=== PATIENT | female | born 1945 | race Caucasian/White ===

== ENCOUNTER 2017-03-05 11:58 | Day surgery (SDC) | payer MEDICARE, OTHER ==
--- NOTE | ~2017-03-05 | EGD ---
EGD REPORT [facility] [address] [id number] NAME: ADONIS AGUIRRE : [birth year] STATUS : [place] [facility] [place] PAT#: [id number] AGE: 71 ADM/REG DATE : 03/05/17 MR#: [id number] REPORT SERV DATE: 03/05/17 DICTATED BY: AKIKO THOMAS DATE: 03/05/17 REPORT STATUS : Draft [facility] DATE: 03/05/17 Endoscopy Center Patient Name: Adonis Aguirre Date of : 1945 Attending MD: AKIKO THOMAS MD Procedure Date No Time: 03/05/2017 Procedure: Upper GI endoscopy Indications: Epigastric abdominal pain, Anorexia, Nausea, Weight loss Referring MD: Mercy TEAGUE Medicines: See the Anesthesia note for documentation of the administered medications Complications: No immediate complications. Procedure: Pre-Anesthesia Assessment: - ASA Grade Assessment: II - A patient with mild systemic disease. After obtaining informed consent, the endoscope was passed under direct vision. Throughout the procedure, the patient's blood pressure, pulse, and oxygen saturations were monitored continuously. The [facility] [id number] was introduced through the mouth, and advanced to the second part of duodenum. The upper GI endoscopy was accomplished without difficulty. The patient tolerated the procedure well. Findings: The 2nd part of the duodenum was normal. Biopsies were taken with a cold forceps for histology. The gastric antrum was normal. Biopsies were taken with a cold forceps for histology. The cardia and gastric fundus were normal on retroflexion. The examined esophagus was normal. Impression: - Normal 2nd part of the duodenum. Biopsied. - Normal antrum. Biopsied. - Normal esophagus. Recommendation: - Patient has a contact number available for emergencies. The signs and symptoms of potential delayed complications were discussed with the patient. Return to normal activities tomorrow. Written discharge instructions were provided to the patient. - Regular diet. - Continue present medications. - FOR YOUR BIOPSY RESULTS: Please go to [email or web address] and register to receive your EGD REPORT [address] [address] NAME: ADONIS AGUIRRE : [birth year] STATUS : [place] [facility] [place] PAT#: [id number] AGE: 71 ADM/REG DATE : 03/05/17 MR#: [id number] REPORT SERV DATE: 03/05/17 DICTATED BY: AKIKO THOMAS DATE: 03/05/17 REPORT STATUS : Draft TRANSCRIBED BY: [employer] DATE: 03/05/17 results via the portal. Your biopsy results will be posted there in about 7 to 10 days. IF you do not see result in 10 days, call office. Procedure Code(s): --- Professional --- 03385, Esophagogastroduodenoscopy, flexible, transoral; with biopsy, single or multiple Diagnosis Code(s): --- Professional --- R10.13, Epigastric pain R63.0, Anorexia R11.0, Nausea R63.4, Abnormal weight loss CPT copyright 2013 [employer]. All rights reserved. The codes documented in this report are preliminary and upon photographic specialist review may be revised to meet current compliance requirements. Akiko Thomas MD AKIKO THOMAS MD 03/05/2017 2:32 PM This report has been signed electronically. Number of Addenda: 0 Note Initiated On: 03/05/2017 2:24 PM Scope Withdrawal Time 0 hours 0 minutes 0 seconds [address] [place] [id number]
--- NOTE | ~2017-03-05 | EGD ---
EGD REPORT [facility] [address] [address] NAME: ADONIS AGUIRRE : [birth year] STATUS : REG [facility] [place] PAT#: [id number] AGE: 71 ADM/REG DATE : 03/05/17 MR#: [id number] REPORT SERV DATE: 03/05/17 DICTATED BY: AKIKO THOMAS DATE: 03/05/17 REPORT STATUS : Draft [facility]: [facility] DATE: 03/05/17 Endoscopy Center Patient Name: Adonis Aguirre Date of : 1945 Attending MD: AKIKO THOMAS MD Procedure Date No Time: 03/05/2017 Procedure: Colonoscopy Indications: Abdominal pain, Change in bowel habits, Constipation, Weight loss, Last colonoscopy: 2011 Referring MD: Mercy TEAGUE Medicines: See the Anesthesia note for documentation of the administered medications Complications: No immediate complications. Procedure: Pre-Anesthesia Assessment: - ASA Grade Assessment: II - A patient with mild systemic disease. After I obtained informed consent, the scope was passed under direct vision. Throughout the procedure, the patient's blood pressure, pulse, and oxygen saturations were monitored continuously. The [facility] [id number] was introduced through the anus and advanced to the cecum, identified by appendiceal orifice and ileocecal valve. The colonoscopy was performed without difficulty. The patient tolerated the procedure well. The quality of the bowel preparation was adequate. Findings: The perianal and digital rectal examinations were normal. Internal hemorrhoids were found during retroflexion and were large. Diverticula were found in the sigmoid colon. Impression: - Internal hemorrhoids. - Diverticulosis in the sigmoid colon. Recommendation: - Patient has a contact number available for emergencies. The signs and symptoms of potential delayed complications were discussed with the patient. Return to normal activities tomorrow. Written discharge instructions were provided to the patient. - Regular diet. - Continue present medications. - Repeat colonoscopy in 5 years for surveillance. - Follow up with my nurse practitioner in 4 weeks - Follow up with primary doc EGD REPORT [address] [place]. [address] NAME: ADONIS AGUIRRE : [birth year] STATUS : REG [facility]#: [id number] AGE: 71 ADM/REG DATE : 03/05/17 MR#: [id number] REPORT SERV DATE: 03/05/17 DICTATED BY: AKIKO THOMAS DATE: 03/05/17 REPORT STATUS : Draft TRANSCRIBED BY: [employer] DATE: 03/05/17 Procedure Code(s): --- Professional --- 41320, Colonoscopy, flexible, proximal to splenic flexure; diagnostic, with or without collection of specimen(s) by brushing or washing, with or without colon decompression (separate procedure) Diagnosis Code(s): --- Professional --- K64.8, Other hemorrhoids K57.30, Diverticulosis of large intestine without perforation or abscess without bleeding R10.9, Unspecified abdominal pain R19.4, Change in bowel habit K59.00, Constipation, unspecified R63.4, Abnormal weight loss CPT copyright 2013 [employer]. All rights reserved. The codes documented in this report are preliminary and upon supervisor edging review may be revised to meet current compliance requirements. Akiko Thomas MD AKIKO THOMAS MD 03/05/2017 2:45 PM This report has been signed electronically. Number of Addenda: 0 Note Initiated On: 03/05/2017 2:21 PM Scope Withdrawal Time 0 hours 6 minutes 42 seconds [address] [place] [id number]
[~2017-03-05 11:58] MED LIST: ACET500CAP PO; ASAB PO; CENTRUM PO; CLOBETASOL0.051 EX; COQ-10200 MG OR; DIOVAN HC1 PO; DIOVAN320 MG PO; GINKGO BILO2 PO; GLUCOPHAGE1000 MG PO; KENCR.1 TOP; LEVOTHROID88 MCG PO; LEVOTHYROXIN88 MCG PO; MULTIPLE VIT PO; NEXIUM40 PO; PRAVACHOL40 MG PO; SYN1 PO; TRIAMCINOL; VITAMIN D31000 UNIT; VITAMIN D31000 UNIT PO
== END 2017-03-05 23:59 | disposition home or self-care (01) ==
LOC: DMU 11:58
PROVIDERS: Internal Medicine Gastroenterology
PROC: 0DJD8ZZ Inspection of Lower Intestinal Tract, Via Natural or Artificial Opening Endoscopic (ICD-10-PCS; 2017-03-05)
PROC: 0DB98ZX Excision of Duodenum, Via Natural or Artificial Opening Endoscopic, Diagnostic (ICD-10-PCS; principal; 2017-03-05 14:00)
PROC: 0DB68ZX Excision of Stomach, Via Natural or Artificial Opening Endoscopic, Diagnostic (ICD-10-PCS; 2017-03-05 14:00)
DX: K29.50 Unspecified chronic gastritis without bleeding (principal); R63.0 Anorexia; R11.0 Nausea; K64.8 Other hemorrhoids; K57.30 Diverticulosis of large intestine without perforation or abscess without bleeding; R19.4 Change in bowel habit; K59.00 Constipation, unspecified; R63.4 Abnormal weight loss; I10 Essential (primary) hypertension; D64.9 Anemia, unspecified; E11.9 Type 2 diabetes mellitus without complications; E03.9 Hypothyroidism, unspecified; L40.9 Psoriasis, unspecified; F41.9 Anxiety disorder, unspecified; N39.0 Urinary tract infection, site not specified; B37.9 Candidiasis, unspecified; N39.3 Stress incontinence (female) (male); M19.90 Unspecified osteoarthritis, unspecified site; H26.9 Unspecified cataract; E78.00 Pure hypercholesterolemia, unspecified; Z90.710 Acquired absence of both cervix and uterus; Z98.890 Other specified postprocedural states; Z79.899 Other long term (current) drug therapy; Z79.82 Long term (current) use of aspirin; Z79.84 Long term (current) use of oral hypoglycemic drugs
CPT/HCPCS: 82962; 88305